=== PATIENT | female | born 1980 | race Caucasian/White ===

== ENCOUNTER 2018-01-02 19:08 | Emergency (ER) | payer OTHER, SELFPAY ==
[2018-01-02 19:09] VITALS: BP 123/77; PULSE 75; RESP 16; TEMP 37; O2SAT 98; BMI 31.3
--- NOTE | 2018-01-02 19:25 | RAD_ITS ---
STUDY: X-RAY - RIGHT ANKLE REASON FOR EXAM: Female, 37 years old. Pain. Injury. TECHNIQUE: 3 view(s) of the ankle. COMPARISON: None. FINDINGS: There is a displaced horizontal fracture through the medial malleolus. There is a displaced oblique fracture through the distal fibula. There is widening of the ankle joint. Mild shift of the talus laterally. Small slightly displaced fracture of the posterior tibial lip seen on the lateral view. Diffuse soft tissue swelling. RAD/Ankle min 3 Views IMPRESSION: Displaced fractures of the distal tibia and fibula as described. Electronically Signed: Hayden Serna MD at 19:37 EDT , Service support ,
[2018-01-02] MEDS: oxyCODONE 5 MG Tablet PO (19:59)
--- NOTE | 2018-01-02 20:09 | ED.VISSUMM ---
- ER Visit Summary Date of Service: 01/02/18 Chief Complaint: [] History of Present Illness: The patient is a 37 F [injury right ankle presents to the emergency department complaint of injury to her right ankle that occurred about an hour ago. Patient states that she was stepping off of her camper when she rolled her ankle and heard a crack. Patient unable to bear weight afterwards. Denies any other injuries.] Physical Examination: [HEENT-PERRLA, EOMI. Cranial nerves II through XII grossly intact. TMs clear. Mucous membranes moist. No adenopathy. Cardiovascular-regular rate and rhythm without murmur or ectopy Lungs-clear to auscultation, chest wall stable without crepitus or subcu emphysema Abdomen-normoactive bowel sounds, soft, nontender, no rebound or rigidity, no peritoneal signs. Extremities-intact ?4, normal range of motion, normal pulses. Right ankle-patient has diffuse soft tissue swelling over the right ankle with tenderness over the medial and lateral malleolus. Patient has no tenderness at the proximal fibular head. Patient has no tenderness at the base of the fifth metatarsal. She is nervously intact with normal station will cap refill and normal pulses. Test Results: [X-rays of the right ankle obtained showed fracture of the medial lateral malleolus. My interpretations noted the patient has a small superficial avulsion type fracture of the posterior malleolus as well.] Emergency Department Course and Treatment: [Patient was placed in a stirrup and posterior type splint. She refused crutches as she has them at home. 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 It may contain incorrect words, spelling, and punctuation that were not noted in review of the chart prior to signing ED Disposition - Plan for ED Patient: Chief Complaint: Lower Extremity Injury Referrals: [facility] Doctor,Out of [Primary Care Provider] -
--- NOTE | 2018-01-02 20:12 | ED.DEP ---
ED Disposition - Plan for ED Patient: Chief Complaint: Lower Extremity Injury Instructions: ED Fx Ankle General Prescriptions: Oxycodone HCl/Acetaminophen [Percocet 5/325] 1 tab PO Q4H PRN PRN 5 Days #20 tab PRN Reason: Pain Referrals: [facility],Out of [Primary Care Provider] - Additional Instructions: see your orthopedic surgeon in morning.
[2018-01-02 20:33] VITALS: RESP 16
--- NOTE | 2018-01-02 20:33 | ED.RN ---
REVIEWED D/C INSTRUCTIONS, FOLLOW UP CARE, PRESCRIPTION, AND S/S THAT WOULD WARRANT A RETURN TO THE ED WITH PT. PT VERBALIZED AN UNDERSTANDING AND DENIES FURTHER QUESTIONS FOR THIS RN. PT SKIN P/W/D, RESP EVEN AND UNLABORED, PT A&O X 3, NO DISTRESS NOTED. PT ASSISTED OUT OF ED IN WHEELCHAIR.
== END 2018-01-02 20:34 | disposition home or self-care (01) ==
LOC: ED 19:55
PROVIDERS: Emergency Provider Emergency Medicine
DX: S82.841A Displaced bimalleolar fracture of right lower leg, initial encounter for closed fracture (principal); Z79.899 Other long term (current) drug therapy; X50.1XXA Overexertion from prolonged static or awkward postures, initial encounter; Y93.01 Activity, walking, marching and hiking; Y92.89 Other specified places as the place of occurrence of the external cause; Y99.8 Other external cause status
CPT/HCPCS: 29515; 73610; 99283